=== PATIENT | female | born 1990 | race Caucasian/White ===

== ENCOUNTER 2021-11-08 09:14 | Emergency (ER) | payer MEDICAID, OTHER ==
[2021-11-08 09:30] VITALS: BP 138/90; O2SAT 100
[2021-11-08] MEDS ORDERED: Adacel Vial IM ONE ×2 (09:53→09:56)
--- NOTE | 2021-11-08 10:27 | XRAY ---
Indication: 1st/2nd digit laceration. Comparison: None 3 view left hand demonstrates normal bones, articulation, and soft tissues.
[2021-11-08 10:53] VITALS: PULSE 64
--- NOTE | 2021-11-08 11:03 | ERPHSYRPT ---
- History of Present Illness Source: patient Exam Limitations: other (pOOR HISTORIAN) Patient Subjective Stated Complaint: Pt put her hand through a glass window 3-4 days ago and has a small laceration on the proximal end of her 2nd finger which has healed over and pt thinks there is still a piece of glass in it and redness and swelling is going up her hand and arm Triage Nursing Assessment: Pt put her hand through a glass window 3-4 days ago and has a small laceration on the proximal end of her 2nd finger which has healed over and pt thinks there is still a piece of glass in it and redness and swelling is going up her hand and arm, pt brought to the ER by a friend, bari rivera, rates pain as 8/10, appears to be having high anxiety, no other issues at this time Physician History: 31 yo wf who is a very poor historian presents w a healing L hand laceration which is 1-2 weeks old. Pt states that a picture frame broke when she hit it on a door frame and thinks that she might have a piece of glass in her hand. She is R handed and needs a tetanus shot. Occurred: other (1-2 weeks) Method of Injury: incised (Broke picture frame) Quality: aching Severity of Pain-Max: severe Severity of Pain-Current: severe Extremities Pain Location: hand: left Modifying Factors: Improves With: movement Associated Symptoms: none Allergies/Adverse Reactions: Penicillins Allergy (Verified 11/08/21 09:30) Hx Tetanus, Diphtheria Vaccination/Date Given: Yes Hx Influenza Vaccination/Date Given: No Travel Risk - International Travel Have you traveled outside of the country in past 3 weeks: No - Coronavirus Screening Are you exhibiting any of the following symptoms?: No Close contact with a COVID-19 positive Pt in past 14-21 Days: No - Vaccine Status Have you recieved a Covid-19 vaccination: No - Review of Systems Constitutional: No Symptoms Eyes: No Symptoms Ears, Nose, & Throat: No Symptoms Respiratory: No Symptoms Cardiac: No Symptoms Abdominal/Gastrointestinal: No Symptoms Genitourinary Symptoms: No Symptoms Skin: No Symptoms Neurological: No Symptoms Psychological: No Symptoms Endocrine: No Symptoms Hematologic/Lymphatic: No Symptoms Immunological/Allergic: No Symptoms - Past Medical History Pertinent Past Medical History: Yes Neurological History: No Pertinent History ENT History: No Pertinent History Cardiac History: No Pertinent History Respiratory History: No Pertinent History Endocrine Medical History: No Pertinent History Musculoskeletal History: No Pertinent History GI Medical History: Hepatitis History: No Pertinent History Psycho-Social History: No Pertinent History Female Reproductive Disorders: No Pertinent History Other Medical History: broken/bad teeth pt states ear problem associated with dental inpaction, Hep C - Past Surgical History Past Surgical History: No Neuro Surgical History: No Pertinent History Cardiac: No Pertinent History Respiratory: No Pertinent History Gastrointestinal: No Pertinent History Genitourinary: No Pertinent History Musculoskeletal: No Pertinent History Female Surgical History: No Pertinent History Other Surgical History: hx from med record - Social History Smoking Status: Current every day smoker How long have you smoked: 10 years Exposure to second hand smoke: Yes Drug Use: marijuana, methamphetamines, narcotics, other Patient Lives Alone: No - Female History Hx Now: No - Nursing Vital Signs Nursing Vital Signs: Initial Vital Signs Temperature 98.4 F 11/08/21 09:21 Pulse Rate 91 H 11/08/21 09:21 Blood Pressure 138/90 11/08/21 09:21 O2 Sat by Pulse Oximetry 100 11/08/21 09:21 Pain Scale Pain Intensity 8 Hypertensive - Physical Exam General Appearance: no apparent distress, anxiety Eyes, Ears, Nose, Throat Exam: normal ENT inspection, TMs normal, pharynx normal, moist mucous membranes Neck Exam: normal inspection, non-tender, supple, full range of motion, No Brudzinski, No Kernig's, No meningismus, No carotid bruit Cardiovascular/Respiratory Exam: normal breath sounds, regular rate/rhythm, heart sounds normal Abdominal Exam: non-tender, soft Back Exam: normal inspection, normal range of motion Shoulder Exam: normal inspection Elbow/Forearm Exam: normal inspection Wrist Exam: normal inspection Hand Exam: laceration (Very small, healing laceration thenar 2nd MCP/Minimal erythema/No evidence of FB to palpation/Good radial pulse, distal sensation, and capillary return) DTR - Upper Extremity Exam: bicep (R): 2+, bicep (L): 2+ Neuro/Tendon Exam: normal sensation, normal motor functions, normal tendon functions, responds to pain, no evidence tendon injury, No motor deficit, No sensory deficit Mental Status Exam: alert, oriented x 3, cooperative, agitated Skin Exam: normal color, warm, dry, No rash SpO2 Interpretation: normal SpO2: 100 O2 Delivery: Room Air - Course Nursing assessment & vital signs reviewed: Yes - Radiology Exams Hand X-ray Interpretation: Discussed w/ radiologist (L hand neg per rad) Ordered Tests: Active Orders 24 hr Category Date Time Status HAND (MINIMUM 3 VIEWS) Stat Exams 11/08/21 10:15 Completed Medication Summary Discontinued Medications Generic Name Dose Route Start Last Admin Trade Name Samantha PRN Reason Stop Dose Admin Diphtheria/Tetanus/Acell Pertussis 0.5 ml 11/08/21 09:53 11/08/21 09:58 Tdap --Diph,Pertuss(Acell),Tet Vac/Pf 0.5 Ml Vial IM 11/08/21 09:54 0.5 ml .ONCE ONE Administration Diphtheria/Tetanus/Acell Pertussis Confirm 11/08/21 09:56 Tdap --Diph,Pertuss(Acell),Tet Vac/Pf 0.5 Ml Vial Administered 11/08/21 09:57 Dose 0.5 ml IM .STK-MED ONE - Progress Progress: improved Progress Note: 11/08/21 11:03 Tdap given Will not explore laceration since it is healing wo obvious evidence of retained FB. Exploration could potentially prolong healing time and increase risk of infection. Counseled pt/family regarding: diagnosis, need for follow-up, rad results - Departure Departure Disposition: Home Clinical Impression: Hand laceration Condition: Stable Critical Care Time: No Referrals: SHANNEN PALACIO MD [Primary Care Provider] - Follow up/PCP as directed Instructions: Wound Care (DC) Additional Instructions: Wash laceration 1-2 times a day with soap/water Watch for signs of infection-redness/Increasing pain/Pus/Temperature greater than 100.5 Start antibiotic DYLAN Prescriptions: Doxycycline Monohydrate 100 mg PO BID 7 Days #14
== END 2021-11-08 11:14 | disposition home or self-care (01) ==
LOC: ED 09:14
DX: S61.211A Laceration without foreign body of left index finger without damage to nail, initial encounter (principal); W25.XXXA Contact with sharp glass, initial encounter; Z72.0 Tobacco use
CPT/HCPCS: 73130; 90471; 90715; 99283

== ENCOUNTER 2022-12-24 09:42 | Emergency (ER) | payer MEDICAID, OTHER ==
--- NOTE | 2022-12-24 09:52 | ERPHSYRPT ---
- History of Present Illness Time Seen by Provider: 12/24/22 09:51 Source: patient Exam Limitations: no limitations Physician History: This is a 32-year-old white female who was having right ear itching and discomfort and therefore she tried to clean out the right ear thinking it was earwax and cleaned it out. However after cleaning out the earwax she was still having some itching pain, mild discomfort and she used a treatment of "smoke" therapy to the right ear. Symptoms persisted so she packed her ear with gauze. This occurred 2 weeks ago and she is not having increased pain in the area. She feels as though there is foreign body (cotton ball/gauze) that is retained. Patient states she is allergic to penicillin but has taken Keflex in the past. Timing/Duration: week(s) (2) Severity: mild (To moderate) Associated Symptoms: other (Right earache) Allergies/Adverse Reactions: bee venom protein (honey bee) Allergy (Severe, Verified 12/24/22 09:58) Swelling Penicillins Allergy (Verified 12/24/22 09:58) Hx Tetanus, Diphtheria Vaccination/Date Given: Yes Hx Influenza Vaccination/Date Given: No Hx Pneumococcal Vaccination/Date Given: No Travel Risk - International Travel Have you traveled outside of the country in past 3 weeks: No - Coronavirus Screening Are you exhibiting any of the following symptoms?: No Close contact with a COVID-19 positive Pt in past 14-21 Days: No - Vaccine Status Have you recieved a Covid-19 vaccination: No - Review of Systems Constitutional: No Symptoms Eyes: No Symptoms Ears, Nose, & Throat: Ear Pain (Right earache with foreign body) Respiratory: No Symptoms Cardiac: No Symptoms Abdominal/Gastrointestinal: No Symptoms Genitourinary Symptoms: No Symptoms Musculoskeletal: No Symptoms Skin: No Symptoms Neurological: No Symptoms Psychological: No Symptoms Endocrine: No Symptoms Hematologic/Lymphatic: No Symptoms Immunological/Allergic: No Symptoms All Other Systems: Reviewed and Negative - Past Medical History Pertinent Past Medical History: No Neurological History: No Pertinent History ENT History: No Pertinent History Cardiac History: No Pertinent History Respiratory History: No Pertinent History Endocrine Medical History: No Pertinent History Musculoskeletal History: No Pertinent History GI Medical History: No Pertinent History, Hepatitis History: No Pertinent History Psycho-Social History: No Pertinent History Female Reproductive Disorders: No Pertinent History Other Medical History: broken/bad teeth pt states ear problem associated with dental inpaction, Hep C - Past Surgical History Past Surgical History: No Neuro Surgical History: No Pertinent History Cardiac: No Pertinent History Respiratory: No Pertinent History Gastrointestinal: No Pertinent History Genitourinary: No Pertinent History Musculoskeletal: No Pertinent History Female Surgical History: No Pertinent History Other Surgical History: hx from med record - Social History Smoking Status: Current every day smoker How long have you smoked: years Exposure to second hand smoke: Yes Drug Use: marijuana, methamphetamines, narcotics, other Patient Lives Alone: Yes - Nursing Vital Signs Nursing Vital Signs: Initial Vital Signs Temperature 98.6 F 12/24/22 09:43 Pulse Rate 92 H 12/24/22 09:43 Respiratory Rate 18 12/24/22 09:43 Blood Pressure 152/113 12/24/22 09:43 O2 Sat by Pulse Oximetry 99 12/24/22 09:43 Pain Scale Pain Intensity 0 - Physical Exam General Appearance: no apparent distress, alert, anxiety Eye Exam: PERRL/EOMI, eyes nml inspection Ears, Nose, Throat Exam: other (Right tympanic membrane obscured with foreign body (appears to be cotton or gauze)) Neck Exam: normal inspection, non-tender, supple, full range of motion Respiratory Exam: airway intact, No chest tenderness, No respiratory distress Gastrointestinal/Abdomen Exam: No tenderness Pelvic Exam: not done Rectal Exam: not done Back Exam: normal inspection, normal range of motion, No CVA tenderness, No vertebral tenderness Extremity Exam: normal inspection, normal range of motion, pelvis stable Neurologic Exam: alert, oriented x 3, cooperative, donor relations officer II-XII nml as tested, normal mood/affect, nml cerebellar function, nml station & gait, sensation nml Skin Exam: normal color, warm, dry Lymphatic Exam: No adenopathy SpO2 Interpretation: normal O2 Delivery: Room Air Procedures - Additional Procedures Progress: Time out performed at 10:15 AM. Right ear foreign body removed with curette and ENT graspers. Recheck of right ear after foreign body removal shows no retained foreign body. However there is redness and inflammation present. Left ear was also evaluated and there is no evidence of any abnormality in the left ear. - Course Nursing assessment & vital signs reviewed: Yes - Progress Progress: improved Progress Note: 12/24/22 10:34 This patient's medical issue is of low complexity. No work-up is necessary. The procedure performed was described above. Patient is being discharged to home with instructions to follow-up with an qualitative researcher. Names provided. A prescription for Keflex 500 mg orally 3 times a day for 7 days was electronically sent to her pharmacy. Patient is use Tylenol and ibuprofen for pain control. Counseled pt/family regarding: diagnosis, need for follow-up Medical Desision Making - Discussion of managment Agreed on:: Treatment plan, need for follow-up - Diagnostic Testing Diagnostic test were ordered, analyzed, and reviewed by me: No - Risk of complications The pt has a mod risk of morbidity or mortality based on: Need for prescription drug management - Departure Departure Disposition: Home Clinical Impression: Foreign body in right ear, initial encounter Condition: Stable Critical Care Time: No Referrals: SHANNEN PALACIO MD [Primary Care Provider] - Follow up/PCP as directed Additional Instructions: Follow-up with qualitative researcher. Call on 12/16/2022 to make an arrangement for follow-up appointment in 3 days. Take your antibiotics as prescribed. Use Tylenol and ibuprofen for pain control. Prescriptions: Cephalexin Mh 500 mg [Keflex 500 mg] 500 mg PO TID #21 cap
[2022-12-24 10:11] VITALS: BP 152/113; PULSE 92; O2SAT 99
== END 2022-12-24 10:46 | disposition home or self-care (01) ==
LOC: ED 09:42
DX: T16.1XXA Foreign body in right ear, initial encounter (principal); H92.01 Otalgia, right ear; Z28.310 Unvaccinated for COVID-19; Z72.0 Tobacco use
CPT/HCPCS: 69200; 99281

== ENCOUNTER 2023-02-24 18:02 | Emergency (ER) | payer OTHER ==
[2023-02-24 18:19] VITALS: BP 174/115; PULSE 104; O2SAT 97
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
== END 2023-02-24 18:47 | disposition home or self-care (01) ==
LOC: ED 18:02
DX: H66.91 Otitis media, unspecified, right ear (principal); T24.031A Burn of unspecified degree of right lower leg, initial encounter; X19.XXXA Contact with other heat and hot substances, initial encounter; H92.01 Otalgia, right ear; Z28.310 Unvaccinated for COVID-19; Z72.0 Tobacco use
CPT/HCPCS: 99281

== ENCOUNTER 2024-02-20 13:17 | Emergency (ER) | payer OTHER ==
[2024-02-20 13:38] VITALS: RESP 18; TEMP 98.6
[2024-02-20 14:20] VITALS: O2SAT 99
[2024-02-20] MEDS ORDERED: CLEOCIN 150 MG CAPSULE ONE (14:27)
--- NOTE | 2024-02-20 14:28 | ERPHSYRPT ---
- History of Present Illness Time Seen by Provider: 02/20/24 14:20 Source: patient Exam Limitations: no limitations Patient Subjective Stated Complaint: pt states she is having left ear pain Triage Nursing Assessment: pt ambulated into the er; pt is axo x4; ETOH; c/o left ear pain; pt states 8/10 pain to left ear; swelling present to middle left ear; missing, broken teeth; skin PDW; no respiratory distress present; hypertensive Physician History: 33-year-old female presents emergency department for evaluation of left ear pain. Patient states her hearing appears slightly diminished. Patient believes she may have "something in her ear". No trauma no fever no dizziness. No nausea vomiting or diaphoresis. Symptoms are mild to moderate in intensity. No specific worsening or improving factors. Patient otherwise feels well. She voices no other complaints or concerns at this time. Portions of this note were created with voice recognition technology. There may be grammatical, spelling, punctuation or sound alike errors Timing/Duration: yesterday Severity: moderate Modifying Factors: Improves With: nothing Associated Symptoms: denies symptoms Allergies/Adverse Reactions: bee venom protein (honey bee) Allergy (Severe, Verified 02/20/24 13:24) Swelling Penicillins Allergy (Verified 02/20/24 13:24) Hives Hx Tetanus, Diphtheria Vaccination/Date Given: Yes (2 yrs ago) Hx Influenza Vaccination/Date Given: No Hx Pneumococcal Vaccination/Date Given: No Travel Risk - International Travel Have you traveled outside of the country in past 3 weeks: No - Emerging Infectious Disease Are you exhibiting symptoms associated with any current EIDs: No - Review of Systems Constitutional: No Symptoms, No Fever, No Chills Eyes: No Symptoms Ears, Nose, & Throat: No Symptoms Respiratory: No Symptoms, No Cough, No Dyspnea Cardiac: No Symptoms, No Chest Pain, No Edema, No Syncope Abdominal/Gastrointestinal: No Symptoms, No Abdominal Pain, No Nausea, No Vomiting, No Diarrhea Genitourinary Symptoms: No Symptoms, No Dysuria Musculoskeletal: No Symptoms, No Back Pain, No Neck Pain Skin: No Symptoms, No Rash Neurological: No Symptoms, No Dizziness, No Focal Weakness, No Sensory Changes Psychological: No Symptoms Endocrine: No Symptoms Hematologic/Lymphatic: No Symptoms Immunological/Allergic: No Symptoms All Other Systems: Reviewed and Negative - Past Medical History Pertinent Past Medical History: No Neurological History: No Pertinent History ENT History: No Pertinent History Cardiac History: No Pertinent History Respiratory History: No Pertinent History Endocrine Medical History: No Pertinent History Musculoskeletal History: No Pertinent History GI Medical History: Hepatitis History: No Pertinent History Psycho-Social History: No Pertinent History Female Reproductive Disorders: No Pertinent History Other Medical History: broken/bad teeth pt states ear problem associated with dental inpaction, Hep C - Past Surgical History Past Surgical History: No Neuro Surgical History: No Pertinent History Cardiac: No Pertinent History Respiratory: No Pertinent History Gastrointestinal: No Pertinent History Genitourinary: No Pertinent History Musculoskeletal: Orthopedic Surgery Female Surgical History: No Pertinent History Other Surgical History: rt arm - Female History Hx Now: No - Social History Smoking Status: Current every day smoker How long have you smoked: years Exposure to second hand smoke: Yes Drug Use: marijuana Patient Lives Alone: No - Social Determinants of Health Will the patient participate in the screening: Yes Do you worry about a steady place to live?: No Do you have any problems with any of the following?: No known problems In the past 12 months,have you had to go without utilities?: No Transportation Issues: No Has anyone in your support network made you feel unsafe?: No Have you or anyone in your house had to go without enough: No - Nursing Vital Signs Nursing Vital Signs: Initial Vital Signs Temperature 98.6 F 02/20/24 13:24 Pulse Rate 116 H 02/20/24 13:24 Respiratory Rate 18 02/20/24 13:24 Blood Pressure 158/102 02/20/24 13:24 O2 Sat by Pulse Oximetry 98 02/20/24 13:24 Pain Scale Pain Intensity 8 - Physical Exam General Appearance: no apparent distress, alert Eye Exam: PERRL/EOMI, eyes nml inspection Ears, Nose, Throat Exam: normal ENT inspection, TMs normal, pharynx normal, moist mucous membranes, other (Left TM is bulging pain with otoscopy) Neck Exam: normal inspection, non-tender, supple, full range of motion Respiratory Exam: normal breath sounds, lungs clear, airway intact, No respiratory distress Cardiovascular Exam: regular rate/rhythm, normal heart sounds, normal peripheral pulses Gastrointestinal/Abdomen Exam: soft, normal bowel sounds, No tenderness, No mass Back Exam: normal inspection, normal range of motion, No CVA tenderness, No vertebral tenderness Extremity Exam: normal inspection, normal range of motion, pelvis stable Neurologic Exam: alert, oriented x 3, cooperative, normal mood/affect, sensation nml, No motor deficits Skin Exam: normal color, warm, dry, No rash Lymphatic Exam: No adenopathy SpO2 Interpretation: normal SpO2: 99 O2 Delivery: Room Air - Course Nursing assessment & vital signs reviewed: Yes Ordered Tests: Medication Summary Discontinued Medications Generic Name Dose Route Start Last Admin Trade Name Freq PRN Reason Stop Dose Admin Clindamycin HCl 300 mg 02/20/24 14:25 Clindamycin Hcl 150 Mg Capsule PO 02/20/24 14:26 STAT ONE - Progress Progress: improved Progress Note: Patient 33-year-old female presents to emergency department for evaluation of left ear pain. Pain started 2 days ago. Pain described as an ache that is localized. No radiation. Patient believes there is a foreign body in her ear. However upon physical exam no foreign body observed. There are some pain during otoscopy. No hearing deficits. No dizziness. TM is injected and bulging. No lymphadenopathy observed. Patient is pen allergic. Patient received an oral dose of clindamycin in our ED. A prescription for clindamycin and ibuprofen forwarded to patient's pharmacy. Patient agrees to follow-up with her primary care doctor within 48 hours for reevaluation. Patient voices no other complaints or concerns at this time. Portions of this note were created with voice recognition technology. There may be grammatical, spelling, punctuation or sound alike errors Complexity problem addressed is moderate acute complicated. No critical care time. Complex of data reviewed and analyzed is none. No specialized testing ordered. Diagnosis based on history and physical examination. Risk of morbidity/mortality patient management is moderate. Patient received clindamycin in our ED. A prescription for clinda and ibuprofen forwarded to patient's pharmacy. Vital stable. Time spent to discharge patient is approximately 10 minutes. Plan of care established for shared decision making. Patient voices no other complaints or concerns at this time. Portions of this note were created with voice recognition technology. There may be grammatical, spelling, punctuation or sound alike errors 02/20/24 14:33 Counseled pt/family regarding: diagnosis, need for follow-up - Departure Departure Disposition: Home Clinical Impression: Otitis media Condition: Stable Critical Care Time: No Referrals: SHANNEN PALACIO MD [Primary Care Provider] - Follow up/PCP as directed Additional Instructions: Discharge/Care Plan ARIELLE AKERS was seen on 02/20/24 in the Emergency Room. The patient was counseled regarding Diagnosis,Lab results, Imaging studies, need for follow up and when to return to the Emergency Room. Prescriptions given: Discharge Note I have spoken with the patient and/or caregivers. I have explained the patient's condition, diagnosis and treatment plan based on the information available to me at this time. I have answered the patient's and/or caregiver's questions and addressed any concerns. The patient and/or caregivers have as good understanding of the patient's diagnosis, condition and treatment plan as can be expected at this point. The vital signs have been stable. The patient's condition is stable and appropriate for discharge from the emergency department. The patient will pursue further outpatient evaluation with the primary care physician or other designated or consulting physician as outlined in the discharge instructions. The patient and/or caregivers are agreeable to this plan of care and follow-up instructions have been explained in detail. The patient and/or caregivers have received these instruction. The patient/and or caregivers are aware that any significant change in condition or worsening of symptoms should prompt an immediate return to this or the closest emergency department or call 911. Prescriptions: Clindamycin HCl 150 mg [Cleocin 150 mg Capsule] 2 cap PO QID #56 cap Ibuprofen [IBUPROFEN 400 MG TABLET] 1 tablet PO BID PRN #14 tablet PRN Reason: Pain
[2024-02-20] MEDS: CLEOCIN 150 MG CAPSULE PO ONE (14:29)
[2024-02-20] MEDS ORDERED: TYLENOL 325 MG ONE (14:31)
[2024-02-20] MEDS: TYLENOL 325 MG PO ONE (14:33)
[2024-02-20 14:37] VITALS: BP 154/112; PULSE 84
== END 2024-02-20 14:43 | disposition home or self-care (01) ==
LOC: ED 13:17
DX: H66.92 Otitis media, unspecified, left ear (principal); H92.02 Otalgia, left ear; Z72.0 Tobacco use
CPT/HCPCS: 99282; A9270-GY